=== PATIENT | female | born 1950 | race Caucasian/White ===

== ENCOUNTER → 2018-04-19 | Outpatient (CLI) | payer MEDICARE ==
[~2018-04-19] MED LIST: HYDR-4068 PO; KRIL1CAP19 PO; MILN50TA PO; PANT40TA25 PO; PREG150C PO; TURM500C9 PO
== END | disposition home or self-care (01) ==
LOC: OIH 11:16
PROVIDERS: ATTEND Family Medicine
DX: M19.042 Primary osteoarthritis, left hand (principal); M19.041 Primary osteoarthritis, right hand; M19.032 Primary osteoarthritis, left wrist; M19.031 Primary osteoarthritis, right wrist
CPT/HCPCS: 73100; 73120

== ENCOUNTER → 2018-06-30 | Outpatient (CLI) | payer MEDICARE | END | disposition home or self-care (01) | LOC: RAH 09:44 | PROVIDERS: ATTEND Family Medicine | DX: Z12.31 Encounter for screening mammogram for malignant neoplasm of breast (principal) | CPT/HCPCS: 77067 ==

== ENCOUNTER → 2018-11-30 | Outpatient (CLI) | payer MEDICARE | END | disposition home or self-care (01) | LOC: RAH 10:52 | PROVIDERS: ATTEND Family Medicine | DX: M17.12 Unilateral primary osteoarthritis, left knee (principal); M85.88 Other specified disorders of bone density and structure, other site; M11.262 Other chondrocalcinosis, left knee | CPT/HCPCS: 73560 ==

== ENCOUNTER → 2018-12-16 | Outpatient (CLI) | payer OTHER | END | disposition home or self-care (01) | LOC: OIH 11:09 | PROVIDERS: ATTEND Family Medicine | DX: Z13.6 Encounter for screening for cardiovascular disorders (principal); K44.9 Diaphragmatic hernia without obstruction or gangrene | CPT/HCPCS: 75571 ==

== ENCOUNTER → 2019-07-08 | Outpatient (CLI) | payer MEDICARE | END | disposition home or self-care (01) | LOC: RAH 07:59 | PROVIDERS: ATTEND Family Medicine | DX: Z12.31 Encounter for screening mammogram for malignant neoplasm of breast (principal) | CPT/HCPCS: 77067 ==

== ENCOUNTER → 2020-09-19 | Outpatient (CLI) | payer MEDICARE ==
[~2020-09-19] MED LIST changes: -PANT40TA25 PO; +PANT40TA54 PO
== END | disposition home or self-care (01) ==
LOC: RAH 07:34
PROVIDERS: ATTEND Family Medicine
DX: Z12.31 Encounter for screening mammogram for malignant neoplasm of breast (principal)
CPT/HCPCS: 77067

== ENCOUNTER → 2021-01-07 | Outpatient (CLI) | payer MEDICARE | END | disposition home or self-care (01) | LOC: RAH 14:55 | PROVIDERS: ATTEND Family Medicine | DX: M79.605 Pain in left leg (principal) | CPT/HCPCS: 93971 ==

== ENCOUNTER → 2021-02-13 | Outpatient (CLI) | payer MEDICARE | END | disposition home or self-care (01) | LOC: RAH 07:42 | PROVIDERS: ATTEND Orthopaedic Surgery Sports Medicine | DX: S83.242A Other tear of medial meniscus, current injury, left knee, initial encounter (principal); S83.282A Other tear of lateral meniscus, current injury, left knee, initial encounter; M17.12 Unilateral primary osteoarthritis, left knee; M71.22 Synovial cyst of popliteal space [Baker], left knee; M25.462 Effusion, left knee; X58.XXXA Exposure to other specified factors, initial encounter; Y93.89 Activity, other specified; Y99.8 Other external cause status | CPT/HCPCS: 73721 ==

== ENCOUNTER → 2022-09-23 | Outpatient (CLI) | payer MEDICARE, OTHER | END | disposition home or self-care (01) | LOC: RAH 15:27 | PROVIDERS: ATTEND Family Medicine | DX: Z12.31 Encounter for screening mammogram for malignant neoplasm of breast (principal) | CPT/HCPCS: 77067 ==

== ENCOUNTER → 2023-02-16 | Outpatient (CLI) | payer MEDICARE | END | disposition home or self-care (01) | LOC: RAH 10:31 | PROVIDERS: ATTEND Family Medicine | DX: M19.012 Primary osteoarthritis, left shoulder (principal); M79.672 Pain in left foot; M25.512 Pain in left shoulder; M85.812 Other specified disorders of bone density and structure, left shoulder; M75.102 Unspecified rotator cuff tear or rupture of left shoulder, not specified as traumatic; M20.12 Hallux valgus (acquired), left foot | CPT/HCPCS: 73030; 73630 ==

== ENCOUNTER → 2023-09-24 | Outpatient (CLI) | payer MEDICARE | END | disposition home or self-care (01) | LOC: RAH 08:32 | PROVIDERS: ATTEND Family Medicine | DX: Z12.31 Encounter for screening mammogram for malignant neoplasm of breast (principal) | CPT/HCPCS: 77067 ==

== ENCOUNTER → 2024-08-25 | Outpatient (CLI) | payer MEDICARE ==
--- NOTE | 2024-08-25 10:24 | HMCIMG ---
PROCEDURE: MAMMO DX BILATERAL, US BREAST COMPLETE UNILATERAL HISTORY: Breast pain COMPARISON: 09/24/2023 TECHNIQUE: Bilateral digital diagnostic mammogram with CAD was performed. No additional views were obtained. Left breast ultrasound study was performed. FINDINGS: The breasts are heterogeneously dense, which may obscure small masses. There is no evidence of a dominant mass, or suspicious microcalcification. There is no evidence of nipple retraction or skin thickening. Left breast ultrasound study shows no evidence of cystic or hypoechoic mass. There are left axillary lymph nodes measuring 2.3 x 0.6 x 1.2 cm and 1.7 x 0.8 x 1.5 cm. IMPRESSION: 1. Stable mammogram. No evidence of cystic or hypoechoic mass is seen. BI-RADS: CATEGORY 2: BENIGN FINDINGS Recommend monthly self breast exam as well as annual clinical examination. A negative x-ray should not delay biopsy if a dominant or clinically suspicious mass is present, since 8-10% of cancers are not identified by mammography. Dense breasts particularly, may obscure an underlying neoplasm. Some of these may be detected clinically and therefore, clinical examination is an essential part of breast evaluation.
== END | disposition home or self-care (01) ==
LOC: RAH 07:22
PROVIDERS: ATTEND Family Medicine
DX: R92.333 Mammographic heterogeneous density, bilateral breasts (principal); N63.0 Unspecified lump in unspecified breast; N64.4 Mastodynia
CPT/HCPCS: 76641; 77066

== ENCOUNTER 2025-07-31 11:49 | Emergency (ER) | payer MEDICARE ==
[~2025-07-31] VITALS: Ht 154.9 cm; Wt 62.1 kg
[~2025-07-31 11:49] MED LIST changes: -TURM500C9 PO; +[UNRECOGNIZED DRUG - CODE] PO
--- NOTE | 2025-07-31 12:00 | NUR ---
PT C/O TO FOREHEAD/HEAD,LT SHOULDER,AND RT RIBS S/P ACCIDENTAL FALL. PT DENIES LOC,NEG BLOOD THINNERS.
--- NOTE | 2025-07-31 13:14 | HMCIMG ---
EXAM: CT Head Without IV contrast. CLINICAL HISTORY: fall TECHNIQUE: Axial computed tomography images of the head/brain without intravenous contrast. COMPARISON: None provided. FINDINGS: BRAIN: No evidence of acute hemorrhage. No mass lesion. No CT evidence for acute territorial infarct. No midline shift or extra-axial collections. VENTRICLES: No hydrocephalus. ORBITS: The orbits are unremarkable. SINUSES AND MASTOIDS: The paranasal sinuses and mastoid air cells are clear. BONES: No fracture. SOFT TISSUES: Unremarkable. IMPRESSION: No acute intracranial abnormality. /[place]
[2025-07-31] MEDS: HYDROcodone/APAP 5/325 1 TAB TABLET PO ONE (13:46)
--- NOTE | 2025-07-31 13:55 | HMCIMG ---
EXAM: CR left Shoulder, 2 View. CLINICAL HISTORY: fall right rib pain COMPARISON: None provided. FINDINGS: BONES: No acute fracture or aggressive appearing osseous lesion. JOINTS: No dislocation. Mild acromioclavicular and glenohumeral joint osteoarthritis. Calcific tendinopathy within the rotator interval likely reflecting rotator cuff tendon pathology. SOFT TISSUES: The soft tissues are unremarkable. IMPRESSION: 1. No acute findings. 2. Calcific tendinopathy within the rotator interval, likely reflecting rotator cuff tendon pathology. /[place]
--- NOTE | 2025-07-31 13:57 | HMCIMG ---
EXAM: CR left Humerus, 4 View. CLINICAL HISTORY: fall right rib pain COMPARISON: None provided. FINDINGS: BONES: No acute fracture or aggressive appearing osseous lesion. JOINTS: No dislocation. The joint spaces are normal. SOFT TISSUES: The soft tissues are unremarkable. IMPRESSION: No acute osseous abnormality. /[place]
--- NOTE | 2025-07-31 13:58 | HMCIMG ---
EXAM: CR right Ribs and AP Chest, 5 View. CLINICAL HISTORY: fall right rib pain COMPARISON: None provided. FINDINGS: LUNGS: The lungs appear essentially clear. PLEURAL SPACES: No pneumothorax evident. No pleural effusions. HEART: Heart size is within normal limits. MEDIASTINUM: The mediastinal silhouette is within normal limits. BONES: No acute rib fracture is evident. IMPRESSION: No evidence of acute rib fracture. No pneumothorax seen. No acute cardiopulmonary pathology is evident. /[place]
--- NOTE | 2025-07-31 14:42 | ERN ---
ED Note History of Present Illness Stated Complaint: HEAD INJURY, LEFT SHOULDER, RT RIB PAIN Chief Complaint: Mechanical Fall Time Seen by MD: 12:03 Time Seen by Midlevel: 12:10 Dictation: 75 years old with a history of GERD coming in status post ground level fall. Patient states she stubbed her toe and fell forward hitting her head on the door, complaining of left shoulder pain, right rib pain and hematoma to the right frontal scalp area. No LOC, no blood thinners. GCS 15 NIH 0 at the time of my initial assessment. Allergies: Coded Allergies: No Known Allergies (Unverified Allergy, Unknown, 07/31/25) Home Meds Reported Medications Milnacipran HCl (Savella) 50 Mg Tablet, 50 MG PO BID, TAB 07/14/16 Pregabalin (Lyrica) 150 Mg Capsule, 150 MG PO BID, CAP 07/14/16 Turmeric Root Extract (Turmeric) 500 Mg Capsule, 1500 MG PO BID, CAP 07/14/16 Krill/Om-3/Dha/Epa/Phospho/Ast (Krill Oil 500 mg Softgel) 1 Each Capsule, 1 EACH PO BID, CAP 07/14/16 Hydrocodone/Acetaminophen (Hydrocodon-Acetaminophn 10-325) 1 Each Tablet, 1 EACH PO DAILY PRN for PAIN LEVEL 6 TO 10, TAB 07/14/16 Pantoprazole Sodium (Pantoprazole Sodium) 40 Mg Tablet.dr, 40 MG PO DAILY, TAB 07/14/16 Past Medical History Past Medical History: GERD Additional Past Medical Hx: INSOMNIA Surgical History: Appendectomy, Hysterectomy, Cholecystectomy Review of System Dictation Constitutional: Negative for fever,chills, and weight loss Eyes: Negative for injury, pain,redness, and discharge ENT: Negative for injury,pain or swelling Cardiovascular: Negative for chest pain, palpitations, and edema Respiratory: Negative for shortness of breath, cough, and wheezing, Abdomen/GI: Negative for abdominal pain, nausea, vomiting, diarrhea, and constipation Back: Negative for injury and pain : Negative for injury, bleeding and discharge MS/Extremity: Complaining of left shoulder pain and right rib pain Skin: Negative for rash, and discoloration Neuro: Negative for headache, weakness, numbness, tingling, and seizure , complaining of hematoma to the right frontal scalp Psych: Negative for suicide ideation, homicidal ideation, and hallucinations Review of Systems: was completed Initial Vital Sign VS Vital Signs Date Time Temp Pulse Resp B/P (MAP) Pulse Ox O2 Delivery O2 Flow Rate FiO2 07/31/25 11:50 97.9 89 16 143/97 97 Room Air 0 Physical Exam Dictation General: awake, alert, NAD Head/Face: Normocephalic, atraumatic Eyes: PERRL, EOMI, vision at baseline ENT: oral cavity clear, TMs clear, no signs of infection Neck: Trachea midline, supple, no nuchal rigidity Cardiovascular: RRR, normal S1/S2, No MRGs, no JVD Respiratory: CTAB, no respiratory distress, No rales or wheezes Abdomen: Soft, non-tender, non-distended, normal bowel sounds, no guarding or rebound. Skin: Warm, dry, normal turgor, no rash MS/Extremity: Pulses equal, no cyanosis, neurovascular intact, FROM, pain on palpation to the upper left shoulder Neuro: COAx4, GCS 15, strength 5/5, CN 2-12 intact, normal cerebellar exam, normal gait,, hematoma noted to the right frontal scalp area Maximus was while Psych: Normal behavior, mood, and affect normal Results (Laboratory/Radiology) X-RAY Comment: [facility] [address] IMAGING REPORT Signed PATIENT: JANELL ROLAND MR#: [id number] : 1950 SEX: F AGE: 75 LOCATION: [facility] ORDER 1210 STATUS: REG ER [facility] REPORT#: [id number] SERVICE 1208 REASON: fall right rib pain ORDERING PHYSICIAN: KENN BARNETT CNP PROCEDURE: SHOL 2V LT - SHOULDER COMP 2+VWS LT EXAM: CR left Shoulder, 2 View. CLINICAL HISTORY: fall right rib pain COMPARISON: None provided. FINDINGS: BONES: No acute fracture or aggressive appearing osseous lesion. JOINTS: No dislocation. Mild acromioclavicular and glenohumeral joint osteoarthritis. Calcific tendinopathy within the rotator interval likely reflecting rotator cuff tendon pathology. SOFT TISSUES: The soft tissues are unremarkable. IMPRESSION: 1. No acute findings. 2. Calcific tendinopathy within the rotator interval, likely reflecting rotator cuff tendon pathology. /[place] DICTATED BY: OKSANA DUGGAN Jr., MD DATE: 07/31/251453 ELECTRONICALLY SIGNED BY: OKSANA DUGGAN Jr., MD DATE: 07/31/251453 [place] [address] [id number] IMAGING REPORT Signed PATIENT: JANELL ROLAND MR#: [id number] : 1950 SEX: F AGE: 75 LOCATION: [facility] ORDER 09 STATUS: REG ER [facility] REPORT#: [id number] SERVICE 07 REASON: fall right rib pain ORDERING PHYSICIAN: KENN BARNETT CNP PROCEDURE: RIB RT W C - RIBS UNI RT W PA CHEST 3+ VWS EXAM: CR right Ribs and AP Chest, 5 View. CLINICAL HISTORY: fall right rib pain COMPARISON: None provided. FINDINGS: LUNGS: The lungs appear essentially clear. PLEURAL SPACES: No pneumothorax evident. No pleural effusions. HEART: Heart size is within normal limits. MEDIASTINUM: The mediastinal silhouette is within normal limits. BONES: No acute rib fracture is evident. IMPRESSION: No evidence of acute rib fracture. No pneumothorax seen. No acute cardiopulmonary pathology is evident. /[place] DICTATED BY: OKSANA DGUGAN Jr., MD DATE: 07/31/251455 ELECTRONICALLY SIGNED BY: OKSANA DUGGAN Jr., MD DATE: 07/31/251455 [place] [address] [address] IMAGING REPORT Signed PATIENT: JANELL ROLAND MR#: [id number] : 1950 SEX: F AGE: 75 LOCATION: [facility] ORDER STATUS: REG ER [facility] REPORT#: [id number] SERVICE 120 REASON: fall right rib pain ORDERING PHYSICIAN: KENN BARNETT CNP PROCEDURE: HUM 2V LT - HUMERUS 2+VWS LT EXAM: CR left Humerus, 4 View. CLINICAL HISTORY: fall right rib pain COMPARISON: None provided. FINDINGS: BONES: No acute fracture or aggressive appearing osseous lesion. JOINTS: No dislocation. The joint spaces are normal. SOFT TISSUES: The soft tissues are unremarkable. IMPRESSION: No acute osseous abnormality. /[place] DICTATED BY: OKSANA DUGGAN Jr., MD DATE: 07/31/251454 ELECTRONICALLY SIGNED BY: OKSANA DUGGAN Jr., MD DATE: 07/31/251454 CT Scan Comment: [place] [id number] IMAGING REPORT Signed PATIENT: JANELL ROLAND MR#: [id number] : 1950 SEX: F AGE: 75 LOCATION: [facility] ORDER 1210 STATUS: REG ER REPORT#: [id number] SERVICE 07 REASON: fall ORDERING PHYSICIAN: KENN BARNETT CNP PROCEDURE: HEAD WO - CT HEAD/BRAIN W/O CONTRAST EXAM: CT Head Without IV contrast. CLINICAL HISTORY: fall TECHNIQUE: Axial computed tomography images of the head/brain without intravenous contrast. COMPARISON: None provided. FINDINGS: BRAIN: No evidence of acute hemorrhage. No mass lesion. No CT evidence for acute territorial infarct. No midline shift or extra-axial collections. VENTRICLES: No hydrocephalus. ORBITS: The orbits are unremarkable. SINUSES AND MASTOIDS: The paranasal sinuses and mastoid air cells are clear. BONES: No fracture. SOFT TISSUES: Unremarkable. IMPRESSION: No acute intracranial abnormality. /[place] DICTATED BY: YANELIS VALERA MD DATE: 12/29/25 1414 ELECTRONICALLY SIGNED BY: YANELIS VALERA MD DATE: 07/31/251413 ED Course ED Course Orders Procedure Category Date Status Time Ct Head/Brain W/O CT 07/31/25 Resulted Contrast 12:08 Ribs Uni Rt W Pa RAD 07/31/25 Resulted Chest 3+ Vws 12:08 Shoulder Comp 2+Vws Lt RAD 07/31/25 Resulted 12:08 Humerus 2+Vws Lt RAD 07/31/25 Resulted 12:08 Hydrocodone/Apap PHA 07/31/25 Complete 5/325 ([place] 5/325mg) 12:30 Current Medications Medications (Trade) Dose Ordered Sig/Ivon Route PRN Reason Start Time Stop Time Status Last Admin Dose Admin Acetaminophen/ Hydrocodone Bitart (NORco 5/325MG) 1 tab ONCE ONCE PO 07/31/25 12:30 07/31/25 12:31 DC 07/31/25 13:46 Vital Signs Date Time Temp Pulse Resp B/P (MAP) Pulse Ox O2 Delivery O2 Flow Rate FiO2 07/31/25 11:50 97.9 89 16 143/97 97 Room Air 0 Medical Decision Making MDM MDM: 75 years old with a history of GERD coming in status post ground level fall. Patient states she stubbed her toe and fell forward hitting her head on the door, complaining of left shoulder pain, right rib pain and hematoma to the right frontal scalp area. No LOC, no blood thinners. GCS 15 NIH 0 at the time of my initial assessment. Differential diagnosis: Subdural hematoma, humeral head fracture, shoulder dislocation, rib fracture, rib contusion, head contusion Rationale: Tests considered and ordered secondary to shared decision making include: Previous outside records reviewed: Old ER visits. Risk of complication and/or morbidity or mortality of patient management: None Medications-Per medication reconciliation Need for hospitalization: Patient does not meet criteria for hospitalization. Need for emergency major/minor surgery: No There are no social concerns with this patient. Prescription drug management Prescriptions will include symptomatic care Patient's prior external medical records from other ER visits were reviewed by malvin dooley as indicated. Prior testing and results from previous visits were reviewed. Prior tests were taken into account with medical decision making and resource utilization, independent historian/historians were used to obtain complete medical history. I independently interpreted the test that were performed, results were reviewed by me and considered findings on radiology if ordered. Medical management and examination interpretation discussions were had by me with other qualified healthcare professionals as indicated for the patient's care. DX & DISP Disposition: Discharge Departure Impression: Primary Impression: Contusion of shoulder, left Additional Impressions: Rib contusion, Head contusion Condition: Stable Scripts Naproxen Sodium (Naproxen Sodium) 220 Mg Capsule 1 CAP PO BID for 3 Days, #6 CAP 0 Refills Prov: KENN BARNETT CNP 07/31/25 Lidocaine (Lidocaine) 4 % Adh..patch 1 PATCH TP DAILY for 10 Days, #10 PATCH 0 Refills Prov: KENN BARNETT CNP 07/31/25 Additional Instructions: X-ray and CT showed no broken bones. Follow up with your primary doctor in 2-3 days. You can also follow up with the orthopedic if your pain persists in your shoulder. Return to the hospital immediately if you develop any chest pain, shortness a breath, confusion, nausea and vomiting. Referrals: JOHN NARAYANAN MD (PCP) Time of Disposition: 14:53 I have reviewed the case, and I agree with, Diagnosis and Plan KENN BARNETT CNP Jul 31, 2025 14:42
[2025-07-31] MEDS ORDERED: NAPR220C62 PO (14:57)
[2025-07-31] MEDS ORDERED: LIDO1ADH82 TP (14:57)
[2025-07-31 15:23] VITALS: BP 144/69; PULSE 66; RESP 20; TEMP 98.3; O2SAT 99
== END 2025-07-31 15:24 | disposition home or self-care (01) ==
LOC: EDH 11:49
DX: S40.012A Contusion of left shoulder, initial encounter (principal); S00.93XA Contusion of unspecified part of head, initial encounter; S20.219A Contusion of unspecified front wall of thorax, initial encounter; M67.912 Unspecified disorder of synovium and tendon, left shoulder; Z90.49 Acquired absence of other specified parts of digestive tract; Z90.710 Acquired absence of both cervix and uterus; Z79.899 Other long term (current) drug therapy; W19.XXXA Unspecified fall, initial encounter; Y93.89 Activity, other specified; Y92.89 Other specified places as the place of occurrence of the external cause; Y99.8 Other external cause status
CPT/HCPCS: 70450; 71101; 73030; 73060; 99284